=== PATIENT | female | born 2000 | race Two or more races ===

== ENCOUNTER → 2025-01-09 | Outpatient (CLI) | payer OTHER, SELFPAY ==
[2025-01-10 12:49] LABS: Cocci Serology, IgM Positive (Negative)
[2025-01-10 12:51] LABS: Cocid Sro, CF/ID (UCD) NO CHG* See Sep Rpt
== END | disposition home or self-care (01) ==
PROVIDERS: PCP Family Medicine; Referring Provider Obstetrics & Gynecology; Visit Provider Obstetrics & Gynecology
DX: J18.8 Other pneumonia, unspecified organism (principal)
CPT/HCPCS: 36415; 86635

== ENCOUNTER 2025-05-13 11:04 | Inpatient (IN) | payer OTHER, SELFPAY ==
[2025-05-13] VITALS (12 sets, daily range): BP systolic 101–118; BP diastolic 57–76; PULSE 60–78; RESP 16–98; TEMP 36.7–36.9; O2SAT 95–97; BMI 27.5; BMI 27.6
[2025-05-13] MEDS: RINGERS LACTATED 1000 ML 1,000 ML 100 ML IV (11:36)
[2025-05-13 11:47] LABS: Basophils # (Auto) 0.0 Thou/mm3 (0.0-0.2); Basophils % (Auto) 0 % (0-2.5); Eosinophils # (Auto) 0.0 Thou/mm3 (0.0-0.5); Eosinophils % (Auto) 0 % (0-10); Hematocrit 35.9 % (36.0-46.0); Hemoglobin 13.1 g/dL (12.0-16.0); Immature Granulocytes Auto 0.02 Thou/mm3 (0.00-0.00); Lymphocytes # (Auto) 1.9 Thou/mm3 (1.0-4.8); Lymphocytes % (Auto) 20 % (10-50); Mean Corpuscular HGB Conc 36.5 g/dl (31.0-37.0); Mean Corpuscular Hemoglobin 34.5 pg (25.0-35.0); Mean Corpuscular Volume 95 fL (80-100); Monocytes # (Auto) 0.5 Thou/mm3 (0.0-0.8); Monocytes % (Auto) 6 % (0-12); Neutrophils # (Auto) 7.1 Thou/mm3 (1.8-7.7); Neutrophils % (Auto) 74 % (37-80); Nucleated Red Blood Cell # 0.00 Thou/mm3 (0.00-0.00); Nucleated Red Blood Cell % 0 /100 WBC (0); Platelet Count 196 Thou/mm3 (140-440); RDW Standard Deviation 44.8 fL (36.4-46.3); Red Blood Count 3.80 Miln/mm3 (4.00-5.20); White Blood Count 9.7 Thou/mm3 (3.6-11.0)
[2025-05-13 12:24] LABS: Syphilis Nonreactive (Nonreactive)
[2025-05-13] MEDS: MINERAL OIL 30 ML UDC TOP (12:48)
[2025-05-13] MEDS: OXYTOCIN INJ 10 UNIT/ML VIAL IM (12:52)
[2025-05-13] MEDS: OXYTOCIN in NS 20 units 20 UNIT/1,000 ML BAG 125 UNIT IV (12:57)
[2025-05-13] MEDS: TRANEXAMIC ACID 1,000 MG IVPB 1,000 MG/100 ML BAG 200 MG IV (13:07)
[2025-05-13] MEDS: IBUPROFEN TAB 400 MG TABLET 800 MG PO ×2 (13:13→23:40)
--- NOTE | 2025-05-13 13:27 | ESHP_ITS ---
Documentation for date of: 05/13/25 OB Labor/Induct. HPI History of Present Illness Chief complaint: labor : 3 Para: 2 Term pregnancies: 2 pregnancies: 0 Living children: 2 History of Abortions: Spontaneous and Elective: 0 History of Vaginal deliveries: 2 History of sections: No History of : No Date of last menstrual period: 07/19/24 SANJANA: 05/18/25 Gestational Age (weeks): 39 Gestational Age (days): 2 Gestational age based on last menstrual period: 42 History of present illness: 25-year-old 3 para 2 admit to labor and delivery complains of contractions that were strong and regular since 1130 last night. Denies social habits. Denies surgery. Denies chronic illness. Patient has been followed with Dr Cota for care. Last menstrual period was July 19, 2024. Estimated due date in May 18, 2025. Denies leaking, denies bleeding. Contractions are every 4 minutes. Patient has had discomforts with the sciatica and backache otherwise she is doing great History of Present Dating criteria: LMP confirmed by 1st trimester US Adequate Care: Yes Ultrasounds: normal 1st trimester US and normal mid trimester US Obstetrical complications: none Medical complications: none Labs Labs: Positive: Rubella Titre, Negative: RPR, Hepatitis B, HIV, Chlamydia, Gonorrhea and Group Beta Strep and Unknown: Herpes Type 1, Herpes Type 2 and Covid-19 Review of Systems Review of Systems Systems Reviewed: All systems reviewed, normal except as documented Past Medical History Surgical History SURGICAL: Negative Section Meds Home Medications and Allergies Home Medications ?Medication ?Instructions ?Recorded ?Confirmed ?Type oxycodone-acetaminophen 5 mg-325 1 tab PO Q6H PRN Pain 10/17/22 05/13/25 History mg tablet tamsulosin 0.4 mg capsule 0.4 mg PO QDAY 10/17/2204/19 History Held on 05/13/25. Instructions: pt request vits no.[id number]-[id number] fum 1 tab PO QDAY 5 05/13/25 History 27 mg iron-folic acid 800 mcg tablet ( One Daily) Allergies Allergy/AdvReac Type Severity Reaction Status Date / Time No Known Allergies Allergy Verified 05/13/25 11:26 OB Exam Physical Exam Vital signs: Temp Pulse Resp BP 98.5 F 78 16 118/68 05/13/25 10:50 05/13/25 10:50 05/13/25 10:50 05/13/25 10:50 Narrative: Normal heart rate and rhythm. Lungs clear no wheezes. Gravid abdomen. Gynecoid pelvis. Estimated weight 5 and half pounds. Vaginal examination was 70%, 5, -2. Vertex. Bag water intact. heart rate category 1 with accelerations and moderate variability. Detailed Labor and Delivery Exam Dilation (cm): 5 Effacement (%): 70 Cervix position: mid station: -2 Consistency: soft Presentation: Vertex Cervical ripeness score: 8 Membranes: intact Baseline heart rate: 145 monitor accelerations: 15x15 monitor decelerations: None keno terminal operator variability: Moderate (11-25) Contraction frequency (min): 3-4 Contraction duration (sec): 50 Tachysystole: No Contraction intensity: Moderate OB Results Labs 05/13/25 11:00 Labs: Short CBC 05/13/25 Range/Units 11:00 WBC 9.7 (3.6-11.0) Thou/mm3 Hgb 13.1 (12.0-16.0) g/dL Hct 35.9 L (36.0-46.0) % Plt Count 196 (140-440) Thou/mm3 OB Assessment & Plan Assessment and Plan (1) Normal labor and delivery: Status: Acute Additional Plan Induction method: none Plan: anticipate NVD and consult MD harris
--- NOTE | 2025-05-13 13:31 | OBDSUM_ITS ---
Data ([facility]) Data Hx Section: No : 3 Term: 2 : 0 Livin Abortions: Spontaneous & Theraputic: 0 Delivery Data ([facility]) Labor Data Initiation of labor: Spontaneous Induction/Augmentation Agent: None ROM date: 05/13/25 ROM time: 12:45 Amniotic membrane rupture type: Artificial Amniotic fluid description: Clear Delivery Data EDC: 05/18/25 EDC calculated by:: LMP/early US confirmation Date of arrival to unit: 05/13/25 Time of arrival to unit: 13:32 Onset of labor date: 05/12/25 Onset of labor time: 23:30 Complete dilation date: 05/13/25 Complete dilation time: 12:45 delivery date: 05/13/25 delivery time: 12:52 Gestational age (weeks): 39 Gestational age (days): 2 Placenta delivery date: 05/13/25 Placenta delivery time: 12:57 Stage 1 total time: Labor - Stage 1 Duration 13 hours and 15 minutes Delivered by: Eli Fonseca Delivery nurse: Giancarlo Ortiz nurse: Tanner Antony RN Nutrition Services Worker at delivery: No Support person(s) at delivery: grandmothers of Delivery Method Delivery method: Normal Vaginal Delivery Presentation: Vertex position: OA Anesthesia Type Anesthesia Type: None Delivery Room Medications Delivery room medications: Pitocin 10 u IM, Pitocin 20 u IV and Cytotec 800 PA Placenta Placenta delivery description: Spontaneous Cord blood sent to lab: Yes cord blood collection: Cord Blood Type Episiotomy Episiotomy description: None (intact) EBL Estimated blood loss (ml): 400 Umbilical Cord cord description: 3 Vessels [place] Data ([facility]) Data 's gender: Female Identification band number: [id number] weight (gms): 2640 g Weight (pounds): 5 lbs and 13.1 ozs length: 50.8 cm 1 minute: 9 5 minutes: 9
[2025-05-13] MEDS: BENZO/LANO/ALOE (Dermoplast) 60 GM CAN 1 SPRAY TOP (14:41)
[2025-05-13] MEDS: ACETAMINOPHEN 325 MG TABLET 650 MG PO (16:34)
[2025-05-13 22:20] LABS: Basophils # (Auto) 0.0 Thou/mm3 (0.0-0.2); Basophils % (Auto) 0 % (0-2.5); Eosinophils # (Auto) 0.0 Thou/mm3 (0.0-0.5); Eosinophils % (Auto) 0 % (0-10); Hematocrit 31.9 % (36.0-46.0); Hemoglobin 11.5 g/dL (12.0-16.0); Immature Granulocytes Auto 0.03 Thou/mm3 (0.00-0.00); Lymphocytes # (Auto) 1.9 Thou/mm3 (1.0-4.8); Lymphocytes % (Auto) 17 % (10-50); Mean Corpuscular HGB Conc 36.1 g/dl (31.0-37.0); Mean Corpuscular Hemoglobin 34.5 pg (25.0-35.0); Mean Corpuscular Volume 96 fL (80-100); Monocytes # (Auto) 0.8 Thou/mm3 (0.0-0.8); Monocytes % (Auto) 7 % (0-12); Neutrophils # (Auto) 8.4 Thou/mm3 (1.8-7.7); Neutrophils % (Auto) 75 % (37-80); Nucleated Red Blood Cell # 0.00 Thou/mm3 (0.00-0.00); Nucleated Red Blood Cell % 0 /100 WBC (0); Platelet Count 163 Thou/mm3 (140-440); RDW Standard Deviation 45.1 fL (36.4-46.3); Red Blood Count 3.33 Miln/mm3 (4.00-5.20); White Blood Count 11.1 Thou/mm3 (3.6-11.0)
[2025-05-14 03:55] VITALS: BP 94/58; PULSE 65; RESP 16; TEMP 36.4; O2SAT 95
[2025-05-14 08:05] VITALS: BP 97/64; PULSE 80; RESP 16; TEMP 36.9
[2025-05-14] MEDS: IBUPROFEN TAB 400 MG TABLET 800 MG PO (08:11)
--- NOTE | 2025-05-14 08:34 | PD.LDPPPRG ---
Subjective Subjective Interval history: No complaints of pain. No dizziness. Bonding breast-feeding Exam Vital Signs Temp Pulse Resp BP Pulse Ox O2 Del Method 97.6 F 65 16 94/58 L 95 Room Air 05/14/25 03:55 05/14/25 03:55 05/14/25 03:55 05/14/25 03:55 05/14/25 03:55 05/14/25 03:55 Narrative Exam Vital signs are stable afebrile. Breasts are soft. Fundus firm below the umbilicus. Perineum is intact. Small lochia. Uterus well involuted. Negative Homans' sign 2+ DTR Objective Labs 05/13/25 22:00 Labs: Laboratory Results - last 24 hr 05/13/25 05/13/25 11:00 22:00 WBC 9.7 11.1 H RBC 3.80 L 3.33 L Hgb 13.1 11.5 L Hct 35.9 L 31.9 L MCV 95 96 MCH 34.5 34.5 MCHC 36.5 36.1 RDW Std Deviation 44.8 45.1 Plt Count 196 163 D Neut % (Auto) 74 75 Lymph % (Auto) 20 17 [place]eman % (Auto) 6 7 Eos % (Auto) 0 0 Baso % (Auto) 0 0 Neut # (Auto) 7.1 8.4 H Lymph # (Auto) 1.9 1.9 Hardeman # (Auto) 0.5 0.8 Eos # (Auto) 0.0 0.0 Baso # (Auto) 0.0 0.0 Immature Gran # (Auto) 0.02 H 0.03 H Absolute Nucleated RBC 0.00 0.00 Immature Gran % 0 0 Nucleated RBC % 0 0 Syphilis Serology Nonreactive Blood Type A Positive Antibody Screen NEGATIVE Blood Bank Wristband ID Yes Assessment & Plan Problem List (1) Normal labor and delivery: Status: Acute Assessment and plan: 24 hr pp Plan Comment Plan Comment: Discharge home with baby today. Continue vitamins and iron. Tylenol ibuprofen for pain. Danger signs. Return in 3 weeks visit. Discussed signs and symptoms of infection and ER precautions. Time Spent With Patient Time: Total time spent is greater than 50% in coordination of care (as documented) at patient's floor/unit and/or counseling patient:
--- NOTE | 2025-05-14 08:36 | PD.LDDS ---
DS: Providers Provider Date of admission: 05/13/25 11:04 Primary care physician: Ashok Duarte MD Admitting Provider: Neal Hui MD Attending Provider on Admission: Eli Fonseca CNM Consults: 05/13/25 13:40 Referral Routine Comment: Attending Provider on DC: Eli Fonseca CNM Discharging Provider: Eli Fonseca CNM DS: Diagnosis Problem List Completed Was Problem List Reviewed/Reconciled?: Yes Summary/Hosp Course Brief History: 25-year-old 3 para 2 admit to labor and delivery complains of contractions that were strong and regular since 1130 last night. Denies social habits. Denies surgery. Denies chronic illness. Patient has been followed with Dr Cota for care. Last menstrual period was July 19, 2024. Estimated due date in May 18, 2025. Denies leaking, denies bleeding. Contractions are every 4 minutes. Patient has had discomforts with the sciatica and backache otherwise she is doing great Peripartum Data Delivery Method: Normal Vaginal Delivery Episiotomy Description: None (intact) Laceration Description: no complications: none Time Spent with Patient Time attestation: Total time spent providing and/or coordinating discharge services: Exam Vital Signs Temp Pulse Resp BP Pulse Ox O2 Del Method 97.6 F 65 16 94/58 L 95 Room Air 05/14/25 03:55 05/14/25 03:55 05/14/25 03:55 05/14/25 03:55 05/14/25 03:55 05/14/25 03:55 Discharge Plan Plan Patient Disposition: HOME (Self Care) Prescriptions/Referrals Prescriptions/Med Rec: No Action oxycodone-acetaminophen 5-325 mg tablet 1 tab PO Q6H PRN (Reason: Pain) Patient Comments: TAKE 1 TABLET BY MOUTH EVERY 6 HOURS NEEDED FOR PAIN FOR 3 DAYS, MAX DAILY DOSE: 4 TAB tamsulosin 0.4 mg capsule 0.4 mg PO QDAY Patient Comments: TAKE 1 CAPSULE BY MOUTH EVERY DAY metoclopramide HCl [Reglan] 10 mg tablet 10 mg PO Q6H PRN (Reason: nausea and vomiting) Qty: 14 0RF naproxen 500 mg tablet 500 mg PO BID PRN (Reason: pain) Qty: 20 0RF montelukast [Singulair] 10 mg tablet 10 mg PO QDAY Qty: 30 0RF One Daily 27 mg iron- 800 mcg tablet 1 tab PO QDAY Patient Comments: Take 1 tablet by mouth once a day Referrals: Ashok Duarte MD [Primary Care Provider] - Patient/Caregiver Discharge Instructions Meds to Beds: No Discharge Activity: resume usual activities Print Language: Serbian Activity Restrictions/Additional Instructions: Discharge home with baby. Continue vitamins and iron. Tylenol ibuprofen for pain. Discussed danger signs symptoms and ER precautions with parameters. Discussed signs symptoms of infection. Increase fluids. Return in 3 weeks to provider for care Stand Alone Forms: Kenisha Award Info., Patient Portal Info Letter Discharge Order Discharge Orders: Discharge (Routine); Ordered 05/14/25 Ordered By: Eli Fonseca Planned Discharge Date 05/14/25
[2025-05-14 12:05] VITALS: BP 110/73; PULSE 66; RESP 16; TEMP 36.4
[2025-05-14] MEDS: ACETAMINOPHEN 325 MG TABLET 650 MG PO (12:07)
== END 2025-05-14 14:40 | disposition home or self-care (01) | DRG 807 ==
LOC: S4SX 14:27 → S4NX 14:54
PROVIDERS: Admitting Provider Obstetrics & Gynecology; PCP Family Medicine; Visit Provider Advanced Practice Midwife
DX: O80 Encounter for full-term uncomplicated delivery (principal); Z37.0 Single live birth; Z3A.39 39 weeks gestation of pregnancy
CPT/HCPCS: 36415; 85025; 86780; 86850; 86900; 86901; J2590; J3490; J7120; S0191; A9270

== ENCOUNTER → 2025-07-11 | Outpatient (CLI) | payer BC, SELFPAY ==
[2025-07-11 09:26] LABS: Collection Type, Urine Clean Catch
[2025-07-11 09:46] LABS: Basophils # (Auto) 0.0 Thou/mm3 (0.0-0.2); Basophils % (Auto) 0 % (0-2.5); Eosinophils # (Auto) 0.2 Thou/mm3 (0.0-0.5); Eosinophils % (Auto) 3 % (0-10); Hematocrit 37.5 % (36.0-46.0); Hemoglobin 13.2 g/dL (12.0-16.0); Immature Granulocytes Auto 0.01 Thou/mm3 (0.00-0.00); Lymphocytes # (Auto) 1.6 Thou/mm3 (1.0-4.8); Lymphocytes % (Auto) 33 % (10-50); Mean Corpuscular HGB Conc 35.2 g/dl (31.0-37.0); Mean Corpuscular Hemoglobin 32.8 pg (25.0-35.0); Mean Corpuscular Volume 93 fL (80-100); Monocytes # (Auto) 0.3 Thou/mm3 (0.0-0.8); Monocytes % (Auto) 6 % (0-12); Neutrophils # (Auto) 2.7 Thou/mm3 (1.8-7.7); Neutrophils % (Auto) 57 % (37-80); Nucleated Red Blood Cell # 0.00 Thou/mm3 (0.00-0.00); Nucleated Red Blood Cell % 0 /100 WBC (0); Platelet Count 187 Thou/mm3 (140-440); RDW Standard Deviation 39.0 fL (36.4-46.3); Red Blood Count 4.02 Miln/mm3 (4.00-5.20); White Blood Count 4.8 Thou/mm3 (3.6-11.0)
[2025-07-11 09:52] LABS: Bacteria,Urine Rare; Bilirubin,Urine Negative (Negative); Blood,Urine Negative (Negative); Clarity,Urine Clear (Clear/Hazy); Color,Urine Yellow (Lt Yel-Yel); Glucose, Urine Negative (Negative); Hyaline Casts,Urine < 1 /hpf (0-1); Ketones,Urine Negative (Negative); Leukocyte Esterase,Urine Positive (Negative); Nitrite,Urine Negative (Negative); PH,Urine 5.5 (5.0-7.0); Protein,Urine Negative (Neg - Trace); RBC,Urine 5 /hpf (0-3); Specific Gravity,Urine 1.029 (1.001-1.035); Squamous Epithelial Cell,Urine 1 /hpf (0-5); Urobilinogen,Urine Negative mg/dL (0.0-1.0); WBC,Urine 9 /hpf (0-5)
[2025-07-11 10:05] LABS: Vitamin D 25 Hydroxy Total 33.4 ng/mL (7.3-40.2)
[2025-07-11 10:11] LABS: Alanine Aminotransferase 42 U/L (10-49); Albumin, Serum 4.9 gm/dL (3.5-5.0); Albumin/Globulin Ratio 2.0 (1.2-2.2); Alkaline Phosphatase 91 U/L (46-116); Anion Gap 12 (7-16); Aspartate Amino Transferase 30 U/L (0-34); BUN/Creatinine Ratio 13 Ratio (12-20); Bilirubin,Total 0.7 mg/dL (0.3-1.2); Blood Urea Nitrogen 9 mg/dL (9-23); Calcium 9.6 mg/dL (8.3-10.6); Calcium (Corrected) 9.6 mg/dL (8.5-10.1); Carbon Dioxide 25.0 mMol/L (20.0-31.0); Cardiac Risk Estimate 3.2 RATIO (3.7-5.6); Chloride 105 mMol/L (98-107); Cholesterol 188 mg/dL (132-200); Creatinine (Component) 0.7 mg/dL (0.6-1.3); Globulin 2.5 gm/dL (2.3-3.5); Glucose 82 mg/dL (74-106); HDL Cholesterol 58 mg/dL (40-60); LDL Cholesterol,Calculated 121 mg/dL (0-130); Osmolality,Calculated 280 (275-295); Potassium 4.0 mMol/L (3.4-5.1); Sodium 142 mMol/L (136-145); Thyroid Stimulating Hormone 0.35 uIU/mL (0.55-4.78); Total Protein 7.4 gm/dL (5.7-8.2); Triglycerides 46 mg/dL (30-150); eGFR > 60 See Note
[2025-07-11 11:57] LABS: Cocci Serology, IgM Negative (Negative)
[2025-07-12 13:49] LABS: Cocci Serology, IgG Negative (Negative)
== END | disposition home or self-care (01) ==
LOC: COPL 08:29
PROVIDERS: PCP Nurse Practitioner Family; Referring Provider Nurse Practitioner Family; Visit Provider Nurse Practitioner Family
DX: Z00.00 Encounter for general adult medical examination without abnormal findings (principal); M08.00 Unspecified juvenile rheumatoid arthritis of unspecified site; R53.83 Other fatigue; B38.9 Coccidioidomycosis, unspecified; E55.9 Vitamin D deficiency, unspecified; N39.0 Urinary tract infection, site not specified; E78.5 Hyperlipidemia, unspecified; Z13.0 Encounter for screening for diseases of the blood and blood-forming organs and certain disorders involving the immune mechanism; Z13.29 Encounter for screening for other suspected endocrine disorder; Z13.21 Encounter for screening for nutritional disorder; Z13.1 Encounter for screening for diabetes mellitus; Z13.89 Encounter for screening for other disorder; Z13.220 Encounter for screening for lipoid disorders
CPT/HCPCS: 36415; 80053; 80061; 81001; 82306; 84443; 85025; 86331; 86635; 87086

== ENCOUNTER → 2025-08-08 | Outpatient (CLI) | payer BC, SELFPAY ==
[2025-08-08 13:11] LABS: T4 (Thyroxine) 7.0 mcg/dL (4.5-10.9)
[2025-08-08 13:12] LABS: Free T4 (Free Thyroxine) 1.21 ng/dL (0.89-1.76); Thyroid Stimulating Hormone 0.58 uIU/mL (0.55-4.78)
[2025-08-13 06:24] LABS: Thyroglobulin Antibodies* <1 IU/mL (< OR = 1); Thyroid Peroxidase Antibodies* <1 IU/mL (<9)
== END | disposition home or self-care (01) ==
LOC: COPL 11:48
PROVIDERS: PCP Nurse Practitioner Family; Referring Provider Nurse Practitioner Family; Visit Provider Nurse Practitioner Family
DX: E03.9 Hypothyroidism, unspecified (principal); R94.6 Abnormal results of thyroid function studies
CPT/HCPCS: 36415; 84436; 84439; 84443; 86376; 86800